=== PATIENT | male | born 1930 | race Caucasian/White ===

== ENCOUNTER 2018-08-02 12:09 | Emergency (ER) | payer MEDICARE, BC | END 2018-08-02 13:45 | disposition home or self-care (01) | LOC: E/R 12:09 | DX: M25.551 Pain in right hip (principal); E03.9 Hypothyroidism, unspecified; I10 Essential (primary) hypertension; Z95.0 Presence of cardiac pacemaker | CPT/HCPCS: 72170; 99283-25 ==

== ENCOUNTER 2018-12-04 06:22 | Emergency (ER) | payer MEDICARE, BC ==
[2018-12-04] MEDS: CEPHALEXIN 500 MG CAP PO (07:09)
== END 2018-12-04 07:47 | disposition home or self-care (01) ==
LOC: E/R 06:22
DX: L03.115 Cellulitis of right lower limb (principal); R40.2142 Coma scale, eyes open, spontaneous, at arrival to emergency department; R40.2362 Coma scale, best motor response, obeys commands, at arrival to emergency department; R40.2252 Coma scale, best verbal response, oriented, at arrival to emergency department; Z95.0 Presence of cardiac pacemaker
CPT/HCPCS: 99283